=== PATIENT | female | born 1980 | race African-American/Black ===

== ENCOUNTER 2017-03-04 08:04 | Emergency (ER) | payer OTHER ==
[~2017-03-04] VITALS: Ht 175.3 cm; Wt 84.0 kg
[~2017-03-04 08:04] MED LIST: PREN-55 PO
[2017-03-04 08:06] VITALS: BP 114/84
[2017-03-04] MEDS ORDERED: KETOROLAC 60MG/2ML VIAL IM ONE (08:45)
== END 2017-03-04 10:20 | disposition home or self-care (01) ==
LOC: ER 08:27
DX: M79.644 Pain in right finger(s) (principal); X58.XXXA Exposure to other specified factors, initial encounter; Y93.89 Activity, other specified; Y92.89 Other specified places as the place of occurrence of the external cause; Y99.8 Other external cause status
CPT/HCPCS: 73130; 81025; 96372; 99284; J1885; Z7610

== ENCOUNTER 2018-04-30 20:58 | Emergency (ER) | payer MEDICAID, OTHER ==
[~2018-04-30] VITALS: Ht 170.2 cm; Wt 79.4 kg
[2018-04-30 21:55] VITALS: BP 141/69
[2018-04-30 22:42] LABS: CLARITY URINE CLEAR (CLEAR); COLOR URINE YELLOW (YELLOW); KETONES URINE TRACE (NEGATIVE); LEUKOCYTE ESTERASE URINE NEGATIVE (NEGATIVE); NITRITE URINE NEGATIVE (NEGATIVE); OCCULT BLOOD URINE TRACE (NEGATIVE); PROTEIN URINE NEGATIVE (NEGATIVE); SPECIFIC GRAVITY URINE 1.027 (1.005-1.030); UROBILINOGEN URINE 0.2 E.U./dL (0.2-1.0)
[2018-04-30 22:43] LABS: BASOPHILS % 0.3 % (0.0-2.0); HEMATOCRIT. 41.2 % (36.0-48.0); HEMOGLOBIN. 13.9 g/dL (12.0-16.0); LYMPHOCYTES % 14.4 % (20.0-50.0); MEAN CORPUSCULAR HEMOGLOBIN 30.3 pg (28.0-32.0); MEAN CORPUSCULAR VOLUME 90.1 fL (81.0-99.0); MEAN PLATELET VOLUME 8.8 fl (7.4-10.4); NEUTROPHILS % 80.3 % (40.0-76.0); PLATELET 269 x1000/uL (130-400); RED BLOOD CELL COUNT 4.57 mill/uL (4.2-5.4); RED CELL DISTRIBUTION WIDTH 13.1 % (11.6-14.6)
[2018-04-30 22:47] LABS: CHLORIDE 108 mEq/L (98-107)
[2018-04-30 23:12] LABS: B-HCG QUANTITATIVE 10191 mIU/mL (<3)
== END 2018-05-01 00:44 | disposition left against medical advice (07) ==
LOC: ER 20:58
DX: O20.0 Threatened abortion (principal); Z79.899 Other long term (current) drug therapy; Z3A.09 9 weeks gestation of pregnancy
CPT/HCPCS: 36415; 80048; 84702; 86850; 86900; 99283

== ENCOUNTER 2018-12-16 14:07 | Emergency (ER) | payer MEDICAID, OTHER ==
[~2018-12-16] VITALS: Ht 175.3 cm; Wt 86.0 kg
[2018-12-16 14:56] VITALS: BP 123/88
[2018-12-16] MEDS ORDERED: TETRACAINE 0.5% OPHTH DROPS 4ML OP ONE (16:45)
[2018-12-16] MEDS ORDERED: FLUORESCEIN SODIUM 1MG/STRIP OP ONE (16:45)
== END 2018-12-16 18:21 | disposition home or self-care (01) ==
LOC: ER 14:07
DX: S05.02XA Injury of conjunctiva and corneal abrasion without foreign body, left eye, initial encounter (principal); X58.XXXA Exposure to other specified factors, initial encounter; Y93.89 Activity, other specified; Y92.89 Other specified places as the place of occurrence of the external cause; Y99.8 Other external cause status
CPT/HCPCS: 99283

== ENCOUNTER 2020-10-25 01:48 | Emergency (ER) | payer MEDICAID, OTHER ==
[~2020-10-25] VITALS: Ht 175.3 cm; Wt 82.0 kg
[2020-10-25 01:49] VITALS: BP 152/98
[2020-10-25] MEDS ORDERED: NAP5EC MT (02:08)
[2020-10-25] MEDS ORDERED: ACET-2708 MT (02:08)
== END 2020-10-25 02:35 | disposition home or self-care (01) ==
LOC: ER 01:48
DX: Z76.0 Encounter for issue of repeat prescription (principal); Z87.19 Personal history of other diseases of the digestive system
CPT/HCPCS: 99282

== ENCOUNTER 2021-08-18 17:23 | Emergency (ER) | payer MEDICAID, OTHER ==
[~2021-08-18] VITALS: Ht 170.2 cm; Wt 77.0 kg
[~2021-08-18 17:23] MED LIST changes: +ACET-2708 MT; +NAP5EC MT
[2021-08-18 17:25] VITALS: BP 106/94
[2021-08-18] MEDS ORDERED: MAGNESIUM/ALUMINUM HYDROXIDE/SIMETHICONE 30ML UDC PO ONE (17:45)
[2021-08-18 18:01] LABS: BASOPHILS % 0.6 % (0.0-2.0); EOSINOPHILS % 2.5 % (0.0-5.0); HEMOGLOBIN. 10.4 g/dL (12.0-16.0); LYMPHOCYTES % 34.1 % (20.0-50.0); MEAN CORPUSCULAR HEMOGLOBIN 24.6 pg (28.0-32.0); MEAN CORPUSCULAR VOLUME 77.7 fL (81.0-99.0); MEAN PLATELET VOLUME 8.5 fl (7.4-10.4); MONOCYTES % 8.5 % (2.0-8.0); NEUTROPHILS % 54.3 % (40.0-76.0); PLATELET 242 x1000/uL (130-400); RED BLOOD CELL COUNT 4.24 mill/uL (4.2-5.4); RED CELL DISTRIBUTION WIDTH 15.8 % (11.6-14.6)
[2021-08-18 18:22] LABS: CHLORIDE 112 mEq/L (98-107)
[2021-08-18] MEDS ORDERED: MAGNESIUM/ALUMINUM HYDROXIDE/SIMETHICONE 30ML UDC PO SCH (20:15)
[2021-08-18] MEDS ORDERED: TOPUD MT (20:52)
[2021-08-18] MEDS ORDERED: ACETAMINOPHEN 325MG TABLET PO ONE (21:00)
== END 2021-08-18 21:13 | disposition home or self-care (01) ==
LOC: ER 17:23
DX: R07.89 Other chest pain (principal)
CPT/HCPCS: 36415; 71045; 80053; 84484; 85025; 93005; 99285

== ENCOUNTER 2023-03-12 05:21 | Emergency (ER) | payer MEDICAID, OTHER ==
[~2023-03-12] VITALS: Ht 175.3 cm; Wt 82.0 kg
[~2023-03-12 05:21] MED LIST changes: +TOPUD MT
[2023-03-12 05:26] VITALS: O2SAT 99
[2023-03-12] MEDS ORDERED: ONDANSETRON 4MG ODT PO STA (07:02)
[2023-03-12] MEDS ORDERED: MAGNESIUM/ALUMINUM HYDROXIDE/SIMETHICONE 30ML UDC PO STA (07:02)
[2023-03-12] MEDS ORDERED: FAMOTIDINE 20MG TABLET PO ONE (07:15)
[2023-03-12] MEDS ORDERED: ACETAMINOPHEN 325MG TABLET PO ONE (07:15)
[2023-03-12 07:31] LABS: BASOPHILS % 0.4 % (0.0-2.0); DIFFERENTIAL COMMENT 0; EOSINOPHILS % 0.4 % (0.0-5.0); HEMATOCRIT. 37.1 % (36.0-48.0); HEMOGLOBIN. 11.9 g/dL (12.0-16.0); LYMPHOCYTES % 12.3 % (20.0-50.0); MEAN CORPUSCULAR HEMOGLOBIN 24.5 pg (28.0-32.0); MEAN CORPUSCULAR HGB CONC 32.1 g/dL (31.0-37.0); MEAN CORPUSCULAR VOLUME 76.3 fL (81.0-99.0); MEAN PLATELET VOLUME 8.4 fl (7.4-10.4); NEUTROPHILS % 84.9 % (40.0-76.0); PLATELET 367 x1000/uL (130-400); RED BLOOD CELL COUNT 4.86 mill/uL (4.2-5.4); RED CELL DISTRIBUTION WIDTH 17.1 % (11.6-14.6)
[2023-03-12 07:42] LABS: CHLORIDE 106 mEq/L (98-107); INDEX HEMOLYSI 1 (1-3); INDEX ICTERIC 1 (1-4); INDEX LIPEMIC 1 (1-3); POTASSIUM 3.8 mEq/L (3.5-5.1); SODIUM 138 mEq/L (136-145)
[2023-03-12 07:45] LABS: HCG SCREEN NEGATIVE
[2023-03-12 07:51] LABS: ALANINE AMINOTRANSFERASE 21 IU/L (13-61); ALBUMIN 4.3 g/dL (3.4-5.0); ASPARTATE AMINOTRANSFERASE 19 IU/L (15-37); BILIRUBIN TOTAL 0.5 mg/dL (0.1-1.0); CALCIUM 9.1 mg/dL (8.5-10.1); CARBON DIOXIDE 27 mEq/L (21-32); CREATININE 0.7 mg/dL (0.6-1.3); GLUCOSE 112 mg/dL (70-105); PROTEIN TOTAL 8.7 g/dL (6.0-8.3); UREA NITROGEN BLOOD 7 mg/dL (7-21)
[2023-03-12] MEDS ORDERED: KETOROLAC 60MG/2ML VIAL IM ONE (11:00)
[2023-03-12] MEDS ORDERED: ONDANSETRON HCL 4MG TABLET PO ONE (13:00)
[2023-03-12 13:07] LABS: CLARITY URINE CLOUDY (CLEAR); COLOR URINE YELLOW (YELLOW); GLUCOSE URINE NEGATIVE (NEGATIVE); KETONES URINE NEGATIVE (NEGATIVE); LEUKOCYTE ESTERASE URINE NEGATIVE (NEGATIVE); NITRITE URINE NEGATIVE (NEGATIVE); OCCULT BLOOD URINE NEGATIVE (NEGATIVE); PROTEIN URINE NEGATIVE (NEGATIVE); SPECIFIC GRAVITY URINE 1.024 (1.005-1.030)
[2023-03-12 13:10] LABS: SQUAMOUS EPITHELIAL CELL URINE 2+ /lpf (RARE/1+); YEAST URINE NONE SEEN
[2023-03-12] MEDS ORDERED: ONDA4TAB50 MT (13:11)
[2023-03-12 13:27] LABS: MUCUS URINE 2+ /lpf (< = 2+)
[2023-03-12 13:29] VITALS: BP 135/82; PULSE 81; RESP 16; TEMP 98.5
[2023-03-12 13:29] LABS: BACTERIA URINE 2+; TRICHOMONAS URINE FEW
== END 2023-03-12 13:32 | disposition home or self-care (01) ==
LOC: ER 05:34
DX: R10.12 Left upper quadrant pain (principal); B34.9 Viral infection, unspecified; I10 Essential (primary) hypertension; Z20.822 Contact with and (suspected) exposure to COVID-19
CPT/HCPCS: 80053; 81003; 81025; 84703; 83690; 85025; 87804 ×2; 36415; 71045; 74176; 96372; 99285; 87426; Q0162; J1885; C9803; Z7610

== ENCOUNTER 2023-03-21 05:04 | Emergency (ER) | payer MEDICAID ==
[~2023-03-21] VITALS: Ht 175.3 cm; Wt 86.0 kg
[~2023-03-21 05:04] MED LIST changes: +ONDA4TAB50 MT
[2023-03-21 05:14] VITALS: O2SAT 99
[2023-03-21 06:21] LABS: BASOPHILS % 0.8 % (0.0-2.0); DIFFERENTIAL COMMENT 0; EOSINOPHILS % 4.9 % (0.0-5.0); HEMATOCRIT. 35.6 % (36.0-48.0); HEMOGLOBIN. 11.4 g/dL (12.0-16.0); LYMPHOCYTES % 32.5 % (20.0-50.0); MEAN CORPUSCULAR HEMOGLOBIN 24.4 pg (28.0-32.0); MEAN CORPUSCULAR HGB CONC 31.8 g/dL (31.0-37.0); MEAN CORPUSCULAR VOLUME 76.7 fL (81.0-99.0); MEAN PLATELET VOLUME 8.4 fl (7.4-10.4); NEUTROPHILS % 53.8 % (40.0-76.0); PLATELET 321 x1000/uL (130-400); RED BLOOD CELL COUNT 4.65 mill/uL (4.2-5.4); RED CELL DISTRIBUTION WIDTH 16.9 % (11.6-14.6); WHITE BLOOD COUNT 6.4 x1000/uL (4.5-11.0)
[2023-03-21 06:27] LABS: CLARITY URINE CLOUDY (CLEAR); COLOR URINE YELLOW (YELLOW); GLUCOSE URINE NEGATIVE (NEGATIVE); KETONES URINE NEGATIVE (NEGATIVE); LEUKOCYTE ESTERASE URINE TRACE (NEGATIVE); NITRITE URINE NEGATIVE (NEGATIVE); OCCULT BLOOD URINE NEGATIVE (NEGATIVE); PROTEIN URINE NEGATIVE (NEGATIVE); SPECIFIC GRAVITY URINE 1.034 (1.005-1.030); UROBILINOGEN URINE 0.2 E.U./dL (0.2-1.0)
[2023-03-21 06:30] LABS: SQUAMOUS EPITHELIAL CELL URINE 1+ /lpf (RARE/1+); YEAST URINE NONE SEEN
[2023-03-21 06:42] LABS: ALANINE AMINOTRANSFERASE 12 IU/L (10-49); ALBUMIN 4.3 g/dL (3.2-4.8); ASPARTATE AMINOTRANSFERASE 19 IU/L (<34); BILIRUBIN TOTAL 0.2 mg/dL (0.1-1.0); CALCIUM 9.6 mg/dL (8.7-10.4); CARBON DIOXIDE 24 mEq/L (21-32); CHLORIDE 106 mEq/L (98-107); CREATININE 0.7 mg/dL (0.6-1.0); GLUCOSE 110 mg/dL (70-105); POTASSIUM 4.1 mEq/L (3.5-5.1); PROTEIN TOTAL 6.7 g/dL (6.0-8.3); SODIUM 138 mEq/L (136-145); UREA NITROGEN BLOOD 12 mg/dL (9-23)
[2023-03-21 07:09] LABS: TROPONIN I HIGH SENSITIVITY < 4 ng/L (3.0-34)
[2023-03-21 07:46] LABS: BACTERIA URINE NONE SEEN
[2023-03-21] MEDS ORDERED: CIPR500T5 MT (10:20)
[2023-03-21 10:37] LABS: UCG SCREEN NEGATIVE
[2023-03-21] MEDS ORDERED: SENN-215 MT (11:19)
[2023-03-21 11:27] VITALS: BP 136/78; PULSE 76; RESP 12; TEMP 97.9
== END 2023-03-21 11:29 | disposition home or self-care (01) ==
LOC: ER 05:04
DX: N39.0 Urinary tract infection, site not specified (principal); J45.909 Unspecified asthma, uncomplicated; I10 Essential (primary) hypertension; Z98.890 Other specified postprocedural states; Z87.442 Personal history of urinary calculi
CPT/HCPCS: 36415; 74176; 80053; 81003; 81025; 84484; 85025; 93005; 99284

== ENCOUNTER 2023-05-25 09:47 | Emergency (ER) | payer MEDICAID ==
[~2023-05-25] VITALS: Ht 170.2 cm; Wt 91.0 kg
[~2023-05-25 09:47] MED LIST changes: +CIPR500T5 MT; +SENN-215 MT
[2023-05-25 09:52] VITALS: BP 151/88; PULSE 86; RESP 16; TEMP 98.2; O2SAT 100
== END 2023-05-25 16:11 | disposition left against medical advice (07) ==
LOC: ER 09:47
DX: M54.9 Dorsalgia, unspecified (principal); Z53.21 Procedure and treatment not carried out due to patient leaving prior to being seen by health care provider
CPT/HCPCS: 99281